=== PATIENT | male | born 1940 | race Caucasian/White ===

== ENCOUNTER 2020-09-16 05:08 | Observation (INO) | payer MEDICARE, BC ==
[~2020-09-16] VITALS: Ht 182.9 cm; Wt 70.9 kg
[~2020-09-16 05:08] MED LIST: ASPIRIN EC81 MG PO; METOPROLOL SUCC50 MG PO; NITROSTAT0.4 MG PO; PRILOSEC40 MG PO; XARELTO20 MG PO
--- NOTE | 2020-09-16 05:15 | NUR ---
TO ROOM VIA W/C WITH AT SIDE. PT TRANSFERRED TO BED WITH ASSIST AND CHANGED INTO GOWN.
--- NOTE | 2020-09-16 06:04 | NUR ---
PT MEDICATED FOR PAIN AND NAUSEA, IV SITE INTACT, PCXR COMPLETE, AWARE OF AWAITING RESULTS, CALL KEVIN WITHIN REACH.
[2020-09-16 06:08] LABS: HEMATOCRIT 44.8 % (39.0-50.0); HEMOGLOBIN 14.2 g/dl (14.0-18.0); IMMATURE GRANULOCYTES 0.3 % (0.0-5.0); MEAN CELL VOLUME 94.7 fL CALC (80.0-100.0); MEAN CORPUSCULAR HGB CONC 31.7 g/dL CAL (32.0-36.0); NEUT# 8.66 thou/uL (1.82-7.42); RED BLOOD COUNT 4.73 mill/uL (4.70-6.10); RED CELL DISTRI WIDTH 13.5 % (11.5-15.5)
[2020-09-16 06:30] LABS: ALBUMIN 4.1 g/dL (3.2-5.0); ALKALINE PHOSPHATASE 123 u/l (38-126); AMYLASE 58 u/l (30-110); ANION GAP 12 (6-22 (CALC)); BILIRUBIN, TOTAL 1.8 mg/dL (0.0-1.4); BUN 31 mg/dL (8-23); BUN/CREATININE RATIO 25 (12-20 (CALC)); CARBON DIOXIDE 25 mmol/l (22-30); CHLORIDE 105 mmol/l (95-108); CREATININE 1.3 mg/dL (0.7-1.3); GFR 53 ML/MIN (>=60 (CALC)); GFR FOR AFR.AMER. > 60 ML/MIN (>=60 (CALC)); LIPASE 93 u/l (23-300); POTASSIUM 4.7 mmol/l (3.5-5.1); SGOT/AST 46 u/l (19-48); SODIUM 137 mmol/l (137-146)
[2020-09-16 06:41] LABS: MYOGLOBIN 164 ng/mL (0 - 121)
--- NOTE | 2020-09-16 06:48 | NUR ---
PT MEDICATED FOR HYPERTENSION, IVF IFNUSIGN ORDERED, AT BEDSIDE AND SWABS OBTAINED ORDERED, PT TOELRATED WELL.
--- NOTE | 2020-09-16 06:56 | NUR ---
RECEIVED REPORT FROM PAWAN HARRISON.
--- NOTE | 2020-09-16 06:59 | NUR ---
REPORT TO MARYCRUZ HARRISON
--- NOTE | 2020-09-16 07:12 | NUR ---
PT RETURNED FROM RADIOLOGY VIA WHEELCHAIR.
[2020-09-16 08:18] LABS: URINE BILIRUBIN - DIPSTICK NEGATIVE (NEGATIVE); URINE BLOOD DIPSTICK NEGATIVE (NEGATIVE); URINE COLOR YELLOW; URINE GLUCOSE - DIPSTICK NEGATIVE (NEGATIVE); URINE KETONE TRACE mg/dL (NEGATIVE); URINE LEUK ESTERASE NEGATIVE (NEGATIVE); URINE NITRITE - DIPSTICK NEGATIVE (Negative); URINE PH 5.5 (4.5-8.0); URINE PROTEIN - DIPSTICK TRACE mg/dL (NEG-TRACE); URINE SPECIFIC GRAVITY 1.025; URINE UROBILINOGEN - DIPSTICK 0.2 E.U./dL (0.2)
--- NOTE | 2020-09-16 08:29 | NUR ---
MD AT BEDSIDE TO DISCUSS RESULTS AND POC.
--- NOTE | 2020-09-16 09:38 | NUR ---
MD AT BEDSIDE TO DISCUSS RESULTS AND POC.
[2020-09-16] MEDS ORDERED: ANORO ELLIPTA 61 AER IN (10:48)
--- NOTE | 2020-09-16 11:00 | NUR ---
REQUESTING #20 LAC BE REMOVED. #20 LAC REMOVED, CATH TIP INTACT.
--- NOTE | 2020-09-16 13:32 | NUR ---
REPORT CALLED TO WENDY HARRISON.
--- NOTE | 2020-09-16 13:45 | NUR ---
TO MED SURG VIA WHEELCHAIR.
[2020-09-16 14:00] VITALS: BP 178/85
--- NOTE | 2020-09-16 14:30 | NUR ---
PT RECEIVED TO ROOM 272 VIA WHEELCHAIR FROM ER ACCOMPANIED BY MARYCRUZ Dodson RN. PT IS ALERT, INTERACTIVE, BUT HAS SIGNIFICANT MEMORY LOSS. PT DESCRIBES PAIN TO BILATERAL LOWER FLANK AREAS THIS MORNING, DOES NOT APPEAR TO BE UNCOMFORTABLE AT THIS TIME. HAS BROUGHT IN ANORO ELLIPTA FOR PT'S USE PER NONFORMULARY.
[2020-09-16 19:00] VITALS: BP 159/81
--- NOTE | 2020-09-16 19:27 | NUR ---
SBAR REPORT RECEIVED FROM WENDY HARRISON. PATIENT LYING IN BED. BED IN LOW POSITION LOCKED. BED ALARM ACTIVATED. NO DISTRESS NOTED. CALL LIGHT WITHIN REACH.
[2020-09-16 23:48] VITALS: BP 159/84
--- NOTE | 2020-09-17 00:28 | NUR ---
RESTING QUIETLY IN BED EYES CLOSED. NO DISTRESS NOTED. BED IN LOW POSITION AND LOCKED. BED ALARM ACTIVATED. CALL LIGHT WITHIN REACH
[2020-09-17 03:34] VITALS: BP 154/85
--- NOTE | 2020-09-17 04:17 | NUR ---
PATIENT CONFUSED. BED ALARM SOUND OFF. UPON ENTERING ROOM PATIENT OUT OF BED, BLOOD ON LINEN AND IV PULLED OUT. REORIENTED PATIENT TO SURROUNDINGS AND ASSISTED BACK TO BED. IV RE-ACCESSED 20G RIGHT FOREARM, FIRST ATTEMPT. LINEN CHANGE PROVIDED BY WELL TESTING OPERATOR. BED ALARM RE-ACTIVATED.
[2020-09-17 05:46] LABS: HEMATOCRIT 42.4 % (39.0-50.0); HEMOGLOBIN 13.4 g/dl (14.0-18.0); IMMATURE GRANULOCYTES 0.4 % (0.0-5.0); MEAN CELL VOLUME 94.2 fL CALC (80.0-100.0); MEAN CORPUSCULAR HGB 29.8 pG CALC (26.0-32.0); MEAN CORPUSCULAR HGB CONC 31.6 g/dL CAL (32.0-36.0); NEUT# 7.47 thou/uL (1.82-7.42); RED BLOOD COUNT 4.5 mill/uL (4.70-6.10); RED CELL DISTRI WIDTH 14.1 % (11.5-15.5)
[2020-09-17 06:12] LABS: ALBUMIN 3.5 g/dL (3.2-5.0); ALKALINE PHOSPHATASE 104 u/l (38-126); ANION GAP 14 (6-22 (CALC)); BILIRUBIN, TOTAL 2.1 mg/dL (0.0-1.4); BUN 32 mg/dL (8-23); BUN/CREATININE RATIO 26 (12-20 (CALC)); CALCULATED LDLCHOLESTEROL 63 mg/dL (62-129 (CALC)); CARBON DIOXIDE 20 mmol/l (22-30); CHLORIDE 108 mmol/l (95-108); CHOLESTEROL HDL RATIO 3.5 (<4.4 (CALC)); CREATININE 1.2 mg/dL (0.7-1.3); GFR 58 ML/MIN (>=60 (CALC)); GFR FOR AFR.AMER. > 60 ML/MIN (>=60 (CALC)); HDL CHOLESTEROL 30 mg/dL (>=40); MAGNESIUM 2.1 mg/dL (1.6-2.3); POTASSIUM 4.8 mmol/l (3.5-5.1); SGOT/AST 51 u/l (19-48); SODIUM 137 mmol/l (137-146); TOTAL CHOLESTEROL 106 mg/dl (0-199); TOTAL PROTEIN 6.1 g/dL (6.3-8.2); TOTAL TRIGLYCERIDES 66 mg/dl (30-149); VLDL CHOLESTROL 13 mg/dl (0-38 (CALC))
[2020-09-17 08:00] VITALS: BP 149/81
--- NOTE | 2020-09-17 08:16 | NUR ---
PT REMAINS CONFUSED PER KNOWN DEMENTIA, ASKS SAME QUESTIONS OFTEN. PT REORIENTED POSSIBLE. LUNGS CLEAR, RA. PT STEADY ON HIS FEET, ALLOWED TO AMBULATE IN ROOM. HAS CALLED, UPDATED. NO REPORT OF PAIN.
--- NOTE | 2020-09-17 12:00 | NUR ---
PT BECOMING INCREASINGLY RESTLESS, REQUIRES MORE CUES TO STAY IN ROOM. 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 DR WILBURN AWARE, WILL CONTACT TO DISCUSS.
[2020-09-17 15:39] VITALS: BP 180/85
--- NOTE | 2020-09-17 16:19 | NUR ---
PT SEEN WALKING AROUND IN ROOM WITH STEADY GAIT, INSPECTING THINGS. PT AWARE OF PENDING SURGERY TOMORROW FOR GALLBLADDER REMOVAL, REMINDED NEEDED. NO DISTRESS, NO ABDOMINAL PAIN OR N/V/D.
[2020-09-17 19:06] VITALS: BP 167/80
--- NOTE | 2020-09-17 20:01 | NUR ---
PHYSICAL ASSESMENT COMPLETE. PT CURRENTLY DENIES PAIN OR DISCOMFORT. SCHEDULED MEDICATIONS AND PRN MEDICATION ADMINISTERED, SEE E-MAR. PT DENIES ANY NEEDS AT THIS TIME. PLAN OF CARE REVIEWED, PT DENIES QUESTIONS, VERBALIZES UNDERSTANDING. PT REMAINS VERY CONFUSED AND ALERT TO SELF ONLY. ITEMS WITHIN REACH, BED LOCKED IN LOW POSITION W/ BEDRAILS UP X2. CALL KEVNI WITHIN REACH, AGREES TO CALL PRN.
[2020-09-18] VITALS (10 sets, daily range): BP systolic 109–187; BP diastolic 64–92
--- NOTE | 2020-09-18 00:04 | NUR ---
PT LAYING IN BED WITH EYES CLOSED, APPEARS TO BE SLEEPING, APPEARS COMFORTABLE AND IN NO DISTRESS. RESPIRATIONS REGULAR AND UNLABORED. ITEMS REMAIN WITHIN REACH, CALL KEVIN REMAINS WITHIN REACH. BED REMAINS LOCKED AND IN LOW POSITION WITH BEDRAILS UP X2. WILL CONTINUE TO MONITOR.
--- NOTE | 2020-09-18 04:10 | NUR ---
PT RESTING IN BED, NO SIGNS OF DISTRESS NOTED, RESP EVEN AND UNLABORED. PT VOICES NO NEEDS OR COMPLAINTS AT THIS TIME. CALL LIGHT IN REACH, CONTINUE TO MONITOR.
[2020-09-18 05:31] LABS: HEMATOCRIT 39.4 % (39.0-50.0); HEMOGLOBIN 12.4 g/dl (14.0-18.0); IMMATURE GRANULOCYTES 0.3 % (0.0-5.0); MEAN CELL VOLUME 94.3 fL CALC (80.0-100.0); MEAN CORPUSCULAR HGB 29.7 pG CALC (26.0-32.0); MEAN CORPUSCULAR HGB CONC 31.5 g/dL CAL (32.0-36.0); NEUT# 6.78 thou/uL (1.82-7.42); RED BLOOD COUNT 4.18 mill/uL (4.70-6.10); RED CELL DISTRI WIDTH 14.1 % (11.5-15.5)
[2020-09-18 06:09] LABS: ALBUMIN 3.2 g/dL (3.2-5.0); ALKALINE PHOSPHATASE 97 u/l (38-126); ANION GAP 17 (6-22 (CALC)); BILIRUBIN, TOTAL 1.9 mg/dL (0.0-1.4); BUN 37 mg/dL (8-23); BUN/CREATININE RATIO 33 (12-20 (CALC)); CARBON DIOXIDE 18 mmol/l (22-30); CHLORIDE 108 mmol/l (95-108); CREATININE 1.1 mg/dL (0.7-1.3); GFR > 60 ML/MIN (>=60 (CALC)); GFR FOR AFR.AMER. > 60 ML/MIN (>=60 (CALC)); POTASSIUM 4.4 mmol/l (3.5-5.1); SODIUM 139 mmol/l (137-146); TOTAL PROTEIN 5.7 g/dL (6.3-8.2)
[2020-09-18 06:30] LABS: SGOT/AST 109 u/l (19-48)
--- NOTE | 2020-09-18 07:40 | NUR ---
ASSESSMENT IS COMPLETED: GETTING READY FOR SURGERY. NO IV SITE . HR IS REG,PULSES ARE STRONG X4, ABD IS SOFT WITH ACTIVE BS, BREATH SOUNDS ARE CLEAR BILATERALLY. PT HAS BEEN AMBULATING IN THE ROOM.
--- NOTE | 2020-09-18 08:03 | NUR ---
PT TRANSPORTED TO OR VIA STRETCHER WITH STAFF.
--- NOTE | 2020-09-18 12:00 | NUR ---
PT RETURNED FROM OR VIA STRETCHER WITH STAFF. IV SITE OBTAINED IN OR. PT ABLE TO AMBULATE TO THE BED WITH 2 PERSON ASSIST. DUE TO BEING SEDATED IN OR. PT THEN PLACED INTO BED. WENT ON HIS STOMACH. SCD'S ATTEMPTED TO BE PLACED, PT REFUSED KEPT MOVING HIS LEGS. STAFF IS SITTING IN THE ROOM TO WATCH HIM. CONTINUE TO OSBERVE AND MONITOR.
--- NOTE | 2020-09-18 16:00 | NUR ---
pt is relaxing in bed with no distress noted.
--- NOTE | 2020-09-18 19:44 | NUR ---
PHYSICAL ASSESMENT COMPLETE. PT CURRENTLY DENIES PAIN OR DISCOMFORT. SCHEDULED MEDICATIONS AND PRN MEDICATION ADMINISTERED, SEE E-MAR. PT DENIES ANY NEEDS AT THIS TIME. PLAN OF CARE REVIEWED, PT DENIES QUESTIONS, VERBALIZES UNDERSTANDING. ITEMS WITHIN REACH, BED LOCKED IN LOW POSITION W/ BEDRAILS UP X2. CALL KEVIN WITHIN REACH, AGREES TO CALL PRN.
[2020-09-19 05:38] LABS: ALBUMIN 3.2 g/dL (3.2-5.0); BILIRUBIN, TOTAL 2.1 mg/dL (0.0-1.4); TOTAL PROTEIN 5.9 g/dL (6.3-8.2)
[2020-09-19 06:11] VITALS: BP 163/91
[2020-09-19 06:12] LABS: HEMATOCRIT 43.8 % (39.0-50.0); IMMATURE GRANULOCYTES 0.3 % (0.0-5.0); MEAN CELL VOLUME 94.4 fL CALC (80.0-100.0); MEAN CORPUSCULAR HGB 30.2 pG CALC (26.0-32.0); NEUT# 8.49 thou/uL (1.82-7.42); RED BLOOD COUNT 4.64 mill/uL (4.70-6.10); RED CELL DISTRI WIDTH 14.1 % (11.5-15.5)
[2020-09-19 06:20] LABS: ALBUMIN 3.2 g/dL (3.2-5.0); BILIRUBIN, TOTAL 2.1 mg/dL (0.0-1.4); CREATININE 1.4 mg/dL (0.7-1.3); TOTAL PROTEIN 5.8 g/dL (6.3-8.2)
[2020-09-19 07:50] VITALS: BP 164/85
--- NOTE | 2020-09-19 07:50 | NUR ---
ASSESSMENT IS COMPLETED: PT TOOK IV SITE OUT. HR IS REG,PULSES ARE STRONG X4, ABD IS SOFT WITH ACTIV EBS. BREATH SOUNDS ARE CLEAR,BILATERALLY. PT CONTINUES TO AMBULATE AROUND THE ROOM. DOES HAVE SOME CONFUSION. ABOUT PLACE. SURGERY SITES ARE CDI.
[2020-09-19 10:33] VITALS: BP 148/83
[2020-09-19] MEDS ORDERED: PERCOCET 5/325M1 TAB PO (10:43)
[2020-09-19] MEDS ORDERED: TRAMADOL HCL50 MG PO (10:45)
--- NOTE | 2020-09-19 12:00 | NUR ---
PT HAS BEEN AMBULATING IN THE [place] AND SPOKE WITH THE DR. CHAMBERS. WILL WAIT FOR HIS TO COME AND TRANSPORT HOME.
--- NOTE | 2020-09-19 13:16 | NUR ---
GAVE DISCHARGE INSTRUCTIONS TO SPOUSE AND WENT OVER EVERYTHING. VERBALIZED UNDERSTANDING.
== END 2020-09-19 13:04 | disposition home or self-care (01) ==
LOC: ED 05:08 → ED-I 09:43 → ED 10:12 → ED-I 10:12 → MS2 10:12
PROVIDERS: Emergency Medicine; Family Medicine; Nurse Practitioner; Surgery; ADMIT Internal Medicine; ATTEND Internal Medicine
PROC: 0FT44ZZ Resection of Gallbladder, Percutaneous Endoscopic Approach (ICD-10-PCS; principal; 2020-09-18)
PROC: BF001ZZ Plain Radiography of Bile Ducts using Low Osmolar Contrast (ICD-10-PCS; 2020-09-18)
DX: K81.0 Acute cholecystitis (principal); I10 Essential (primary) hypertension; F03.90 Unspecified dementia, unspecified severity, without behavioral disturbance, psychotic disturbance, mood disturbance, and anxiety; I25.10 Atherosclerotic heart disease of native coronary artery without angina pectoris; J44.9 Chronic obstructive pulmonary disease, unspecified; I48.91 Unspecified atrial fibrillation; F40.240 Claustrophobia; K21.9 Gastro-esophageal reflux disease without esophagitis; Z85.46 Personal history of malignant neoplasm of prostate; Z20.822 Contact with and (suspected) exposure to COVID-19
CPT/HCPCS: J0131; J1610; J1650; J2710; Q9967; S0164

== ENCOUNTER 2021-09-01 06:55 | Observation (INO) | payer MEDICARE, BC ==
[~2021-09-01] VITALS: Ht 172.7 cm; Wt 76.0 kg
[~2021-09-01 06:55] MED LIST changes: +ALBUTERO1 IN; +ANORO ELLIPTA 61 AER IN; +B-125000 MC2 PO; +CHOLESTYRAM PO; +ELIQUIS5 MG PO; +FUROSEMIDE20 MG PO; +PERCOCET 5/325M1 TAB PO; +TRAMADOL HCL50 MG PO
--- NOTE | 2021-09-01 06:55 | NUR ---
PT TO ROOM WITH TACHYPNEA
[2021-09-01] MEDS ORDERED: ANORO ELLIPTA 61 AER IN ×2 (07:13→10:02)
[2021-09-01 07:35] LABS: IMMATURE GRANULOCYTES 0.1 % (0.0-5.0); MEAN CELL VOLUME 93.2 fL CALC (80.0-100.0); MEAN CORPUSCULAR HGB 28.8 pG CALC (26.0-32.0); MEAN CORPUSCULAR HGB CONC 30.9 g/dL CAL (32.0-36.0); NEUT# 5.15 thou/uL (1.82-7.42); RED BLOOD COUNT 3.09 mill/uL (4.70-6.10); RED CELL DISTRI WIDTH 12.1 % (11.5-15.5)
[2021-09-01 07:36] LABS: HEMATOCRIT 28.8 % (39.0-50.0); HEMOGLOBIN 8.9 g/dl (14.0-18.0)
--- NOTE | 2021-09-01 07:55 | NUR ---
RESPS EVEN AND UNLABORED ON ROOM AIR, REPOSITIONED FOR COMFORT
[2021-09-01 08:04] LABS: ALBUMIN 3.4 g/dL (3.2-5.0); ALKALINE PHOSPHATASE 110 u/l (38-126); ANION GAP 13 (6-22 (CALC)); BUN 34 mg/dL (8-23); BUN/CREATININE RATIO 29 (12-20 (CALC)); CARBON DIOXIDE 21 mmol/l (22-30); CHLORIDE 108 mmol/l (95-108); CREATININE 1.2 mg/dL (0.7-1.3); GFR 58 ML/MIN (>=60 (CALC)); GFR FOR AFR.AMER. > 60 ML/MIN (>=60 (CALC)); POTASSIUM 4.4 mmol/l (3.5-5.1); SODIUM 137 mmol/l (137-146); TOTAL PROTEIN 6.6 g/dL (6.3-8.2)
[2021-09-01 08:15] LABS: BILIRUBIN, TOTAL 0.6 mg/dL (0.0-1.4); SGOT/AST 36 u/l (19-48)
--- NOTE | 2021-09-01 09:26 | NUR ---
MD AT BEDSIDE TO DISCUSS RESULTS AND POC
--- NOTE | 2021-09-01 11:36 | NUR ---
REPORT CALLED TO ROLANDO HARRISON
--- NOTE | 2021-09-01 11:55 | NUR ---
TO MED SURG VIA STRETCHER, TELE MONITOR IN PLACE.
[2021-09-01 12:57] VITALS: BP 156/71
[2021-09-01 15:51] VITALS: BP 140/76
--- NOTE | 2021-09-01 16:05 | NUR ---
ALERT AND CONFUSED PATIENT IS RECEIVED FROM ED. THE ADMISSION PROCESS IS COMPLETED IT IS ABOUT EDUCATING THE PATIENT BUT HE DOES NOT UNDERSTAND HE CONTINUES CONFUSED. HAMMONDS IS PLACED AND PREVENTIVE ROUDS ARE GIVEN EBERY HOUR.
[2021-09-01 19:06] VITALS: BP 136/66
--- NOTE | 2021-09-01 21:15 | NUR ---
PHYSICAL ASSESMENT COMPLETE. PT CURRENTLY DENIES PAIN OR DISCOMFORT. SCHEDULED MEDICATIONS AND PRN MEDICATION ADMINISTERED, SEE E-MAR. PT ALERT TO HIMSELF ONLY. PT DENIES ANY NEEDS AT THIS TIME. PLAN OF CARE REVIEWED, PT DENIES QUESTIONS, VERBALIZES UNDERSTANDING. ITEMS WITHIN REACH, BED LOCKED IN LOW POSITION W/ BEDRAILS UP X2. CALL KEVIN WITHIN REACH, AGREES TO CALL PRN.
[2021-09-02 00:03] VITALS: BP 125/66
--- NOTE | 2021-09-02 00:28 | NUR ---
PT REMAINS CONFUSED AND DISORIENTATED. RESPIRATIONS REGULAR AND UNLABORED. ITEMS REMAIN WITHIN REACH, CALL KEVIN REMAINS WITHIN REACH. BED REMAINS LOCKED AND IN LOW POSITION WITH BEDRAILS UP X2. WILL CONTINUE TO MONITOR.
[2021-09-02 04:00] VITALS: BP 138/75
--- NOTE | 2021-09-02 04:33 | NUR ---
PT RESTING IN BED, NO SIGNS OF DISTRESS NOTED, RESP EVEN AND UNLABORED. PT VOICES NO NEEDS OR COMPLAINTS AT THIS TIME. CALL LIGHT IN REACH, CONTINUE TO MONITOR.
[2021-09-02 05:29] LABS: HEMATOCRIT 27.3 % (39.0-50.0); HEMOGLOBIN 8.5 g/dl (14.0-18.0); MEAN CELL VOLUME 93.8 fL CALC (80.0-100.0); MEAN CORPUSCULAR HGB 29.2 pG CALC (26.0-32.0); MEAN CORPUSCULAR HGB CONC 31.1 g/dL CAL (32.0-36.0); RED BLOOD COUNT 2.91 mill/uL (4.70-6.10); RED CELL DISTRI WIDTH 12.3 % (11.5-15.5)
[2021-09-02 05:50] LABS: ANION GAP 14 (6-22 (CALC)); BUN 33 mg/dL (8-23); BUN/CREATININE RATIO 29 (12-20 (CALC)); CARBON DIOXIDE 19 mmol/l (22-30); CHLORIDE 110 mmol/l (95-108); CREATININE 1.1 mg/dL (0.7-1.3); GFR > 60 ML/MIN (>=60 (CALC)); GFR FOR AFR.AMER. > 60 ML/MIN (>=60 (CALC)); MAGNESIUM 2.3 mg/dL (1.6-2.3); POTASSIUM 4.5 mmol/l (3.5-5.1); SODIUM 138 mmol/l (137-146)
--- NOTE | 2021-09-02 07:53 | NUR ---
RECEIVE REPORT FROM [facility] RN. PATIENT STABLE AT THIS TIME.
[2021-09-02 08:00] VITALS: BP 148/89
[2021-09-02 10:59] VITALS: BP 136/65
[2021-09-02 15:48] VITALS: BP 142/70
--- NOTE | 2021-09-02 17:21 | NUR ---
patient confuse remove telemetry notify cartee SECURITY COMPLIANCE SPECIALIST. He discontinue telemetry.
[2021-09-02 18:56] VITALS: BP 141/69
--- NOTE | 2021-09-02 19:30 | NUR ---
PATIENT RESTLESS IN ROOM-ALERT AND ORIENTED TO SELF ONLY. CONFUSED TO PLACE AND TIME. PATIENT IS [place] DEE-NI', PATIENT STATES THAT HE KNOW THAT HE IS FORGETFUL AND HE HAS DEMENTIA. VERY PLEASANT. PATIENT ON CAMERA FOR SAFETY. WILL CONT TO MONITOR.
--- NOTE | 2021-09-02 21:51 | NUR ---
PATIENT RESTING IN BED AT THIS TIME-AWAKE AND ALERT ORIENTED TO PERSON ONLY. SOES KNOW HIS BIRTHDATE. PLEASANT AND CHALKYITSIK. PATIENT ON ISOLATION FOR COVID. NO IV SITE AT THIS TIME-NEW IV SITE STARTED TO LEFT FOREARM-#22 GAUGE WITH GOOD BLOOD RETURN. PATIENT WITH BRUISE TO LEFT CHEEK-STATES THAT SOMETHING HAPPENED AT HOME BUT CAN'T REMEMBER WHAT. PATIENT ADMITS TO BEING FORGETFUL AND HAVING DEMENIA. LUNGS ARE CLEAR AT THIS TIME. NO COUGH NOTED. ABD IS SOFT WITH ACTIVE BS. WEARING A BREIF BUT URINATES IN THE BR MOST OF THE TIME. NO PERIPHERAL EDEMA NOTED. PATIENT IS STEADY ON HIS FEET. PATIENT ON CAMERA FOR SAFETY MONITORING. SAFETY PRECAUTIONS REINFORCED. CALL LIGHT IN REACH. WILL CONT TO MONITOR.
--- NOTE | 2021-09-03 | NUR ---
PATIENT RESTING IN BED AT THIS TIME WITH EYES CLOSED. RESPS ARE EVEN AND UNLAB ORDERED. SALINE LOCK IN RIGHT FOREARM REMAINS INTACT AT THIS TIME. CALL LIGHT IN REACH. WILL CONT TO MONITOR. CAMERA IN PLACE FOR PAITENT SAFETY.
[2021-09-03 04:00] VITALS: BP 123/64
--- NOTE | 2021-09-03 04:08 | NUR ---
PATIENT IS AWAKE AND RESTLESS. ORIENTED TO PERSON ONLY-THINKS THAT HE IS IN [place]OT[place]. PLEASANT BUT CONFUSED. CAMERA IN PLACE FOR PATIENT SAFETY. CALL LIGHT IN REACH. WILL CONT TO MONITOR.
[2021-09-03 05:05] LABS: HEMATOCRIT 28.8 % (39.0-50.0); HEMOGLOBIN 8.8 g/dl (14.0-18.0); IMMATURE GRANULOCYTES 0.1 % (0.0-5.0); MEAN CELL VOLUME 93.5 fL CALC (80.0-100.0); MEAN CORPUSCULAR HGB 28.6 pG CALC (26.0-32.0); MEAN CORPUSCULAR HGB CONC 30.6 g/dL CAL (32.0-36.0); NEUT# 6.91 thou/uL (1.82-7.42); RED BLOOD COUNT 3.08 mill/uL (4.70-6.10); RED CELL DISTRI WIDTH 12.5 % (11.5-15.5)
[2021-09-03 05:16] LABS: ALBUMIN 3.5 g/dL (3.2-5.0); ALKALINE PHOSPHATASE 120 u/l (38-126); ANION GAP 15 (6-22 (CALC)); BILIRUBIN, TOTAL 0.7 mg/dL (0.0-1.4); BUN 33 mg/dL (8-23); BUN/CREATININE RATIO 25 (12-20 (CALC)); C-REACTIVE PROTEIN 1.2 mg/dL (0-0.9); CARBON DIOXIDE 21 mmol/l (22-30); CHLORIDE 108 mmol/l (95-108); CREATININE 1.3 mg/dL (0.7-1.3); GFR 53 ML/MIN (>=60 (CALC)); GFR FOR AFR.AMER. > 60 ML/MIN (>=60 (CALC)); POTASSIUM 4.6 mmol/l (3.5-5.1); SGOT/AST 52 u/l (19-48); SODIUM 139 mmol/l (137-146); TOTAL PROTEIN 6.5 g/dL (6.3-8.2)
[2021-09-03 08:00] VITALS: BP 133/65
[2021-09-03 08:56] VITALS: BP 133/65
--- NOTE | 2021-09-03 10:37 | NUR ---
REPORT RECEIVE THIS MORNING FROM MAYTE HARRISON. PATIENT STABLE. ALERT AND CONFUSED. PATIENT NOT REPORT PAIN AT THIS TIME. TRY EDUCATED ABOUT NURSING PLAN FOR TODAY AND MEDICATIONS BUT PATIENT IS VERY CONFUSE. HARRIET DUARTE IS DONE FOR FALL PRECAUTION.
[2021-09-03 11:00] VITALS: BP 136/78
[2021-09-03] MEDS ORDERED: PROTONIX40 M2 PO (11:13)
[2021-09-03] MEDS ORDERED: FERROUS SULF325 M3 PO (11:14)
--- NOTE | 2021-09-03 13:11 | NUR ---
patient stable at this time is discharged. educated about medications at home, new meds, follow up with doctors. refer understand. patient very confused and forgutteful
--- NOTE | 2021-09-03 15:33 | NUR ---
Subjective: Patient states that he can only walk short distances, then he feels SOB. Objective: Patient did the following: Patient did B LE seated AROM exercises: hip flexion, hip adduction and abduction, knee extension, hamstring curls, ankle pumps, and gluteal squeezes for 2 x 10 reps with 1 to 2 rest periods. Patient also did bed mobility, transfers, and gait ADLs with use of cane covering 10 feet x 2 reps with SBA x 1. Assessment: Patient exhibiting improving gait distance covered secondary to improving muscle strength on B LE. Plan: Patient to continue working on HEP for B LE to help maintain functional gains acquired during PT intervention. Am Pac score presently at 14 points, discharge recommendation will be home health intervention.
== END 2021-09-03 12:55 | disposition home health service (06) ==
LOC: ED 06:55 → ED-I 09:30 → ED 10:01 → MS2 10:02
PROVIDERS: Family Medicine; Nurse Practitioner; ADMIT Hospitalist; ATTEND Hospitalist
DX: U07.1 COVID-19 (principal); J12.82 Pneumonia due to coronavirus disease 2019; D50.9 Iron deficiency anemia, unspecified; I48.0 Paroxysmal atrial fibrillation; I10 Essential (primary) hypertension; J43.9 Emphysema, unspecified; I25.10 Atherosclerotic heart disease of native coronary artery without angina pectoris; F03.90 Unspecified dementia, unspecified severity, without behavioral disturbance, psychotic disturbance, mood disturbance, and anxiety; K21.9 Gastro-esophageal reflux disease without esophagitis; Z85.46 Personal history of malignant neoplasm of prostate; Z79.01 Long term (current) use of anticoagulants
CPT/HCPCS: J1756; Q9967; S0164

== ENCOUNTER 2021-10-14 08:46 | Day surgery (SDC) | payer MEDICARE ==
[~2021-10-14] VITALS: Ht 177.8 cm; Wt 72.6 kg
[~2021-10-14 08:46] MED LIST changes: +FERROUS SULF325 M3 PO; +PROTONIX40 M2 PO; +VENTOLIN HFA IN
[2021-10-14 11:53] VITALS: BP 126/74
== END 2021-10-14 12:15 | disposition home or self-care (01) ==
LOC: ORM 08:46
PROVIDERS: ATTEND Surgery
PROC: 0DJD8ZZ Inspection of Lower Intestinal Tract, Via Natural or Artificial Opening Endoscopic (ICD-10-PCS; principal; 2021-10-14)
PROC: 0DB78ZX Excision of Stomach, Pylorus, Via Natural or Artificial Opening Endoscopic, Diagnostic (ICD-10-PCS; 2021-10-14)
DX: R19.7 Diarrhea, unspecified (principal); K57.30 Diverticulosis of large intestine without perforation or abscess without bleeding; K64.8 Other hemorrhoids; K21.9 Gastro-esophageal reflux disease without esophagitis; K29.30 Chronic superficial gastritis without bleeding; K44.9 Diaphragmatic hernia without obstruction or gangrene; I10 Essential (primary) hypertension; I48.91 Unspecified atrial fibrillation; Z90.49 Acquired absence of other specified parts of digestive tract